=== PATIENT | female | born 1985 | race American Indian/Alaskan Native ===

== ENCOUNTER 2018-06-19 01:24 | Emergency (ER) | payer SELFPAY ==
[2018-06-19 02:23] VITALS: BP 129/90
[2018-06-19] MEDS ORDERED: PROVENTIL IH ONE (02:25)
--- NOTE | 2018-06-19 03:12 | XRay Report ---
FINAL REPORT EXAM: XR CHEST ROUTINE 2V HISTORY: Shortness of breath TECHNIQUE: PA and lateral views of the chest were submitted. FINDINGS: The heart size and vascularity appear normal. The lungs are clear. Pleural fluid is not seen. The skeletal structures do not show any acute changes. IMPRESSION: No acute cardiopulmonary process.
[2018-06-19 03:17] LABS: Basophils % (Auto) 0.2 % (0.0-1.8); Eosinophils # (Auto) 0.4 K/mm3 (0.0-0.4); Eosinophils % (Auto) 3.8 % (0.0-4.3); Hematocrit 37.7 % (30.3-42.9); Hemoglobin 12.7 gm/dl (10.1-14.3); Lymphocytes # (Auto) 1.6 K/mm3 (1.2-5.4); Lymphocytes % (Auto) 15.3 % (13.4-35.0); Mean Corpuscular HGB Conc 34 % (30-34); Mean Corpuscular Hemoglobin 28 pg (28-32); Mean Corpuscular Volume 84 fl (79-97); Monocytes # (Auto) 0.6 K/mm3 (0.0-0.8); Platelet Count 223 K/mm3 (140-440); Red Blood Count 4.48 M/mm3 (3.65-5.03); Red Cell Distribution Width 14.3 % (13.2-15.2)
[2018-06-19 03:36] LABS: BUN/Creatinine Ratio 16; Blood Urea Nitrogen 11 mg/dL (7-17); Calcium 9.1 mg/dL (8.4-10.2); Hemolysis Index 6
== END 2018-06-19 02:30 | disposition left against medical advice (07) ==
LOC: ED 01:24
DX: R06.00 Dyspnea, unspecified (principal); R07.9 Chest pain, unspecified; Z53.21 Procedure and treatment not carried out due to patient leaving prior to being seen by health care provider
CPT/HCPCS: 36415; 71046; 80048; 84484; 84703; 85025; 93005; 93010; 94640

== ENCOUNTER 2019-11-20 08:29 | Emergency (ER) | payer SELFPAY ==
[2019-11-20] MEDS ORDERED: ALBUTEROL 2.5 MG/3 ML NEBU IH ONE (08:45)
[2019-11-20] MEDS ORDERED: methylPREDNISolone Sod Succinate 125 MG/2 ML INJ IV ONE (08:45)
[2019-11-20] MEDS ORDERED: IPRATROPIUM 0.02% NEBU 2.5 ML IH ONE (08:45)
[2019-11-20] MEDS ORDERED: MAGNESIUM SULFATE 2 GM/50 ML BAG IV ONE (08:47)
--- NOTE | 2019-11-20 08:54 | Emergency Department Report ---
ED Asthma HPI - General Chief Complaint: Adult Asthma Stated Complaint: SOB Time Seen by Provider: 11/20/19 08:45 Source: patient Mode of arrival: Ambulatory Limitations: No Limitations - History of Present Illness Initial Comments: Ms. Reeder is a 34-year-old female past medical history of asthma, bipolar disorder presents with shortness of breath and wheezing for the past 2 days. She has had subjective fever, body aches, cough sore throat nasal congestion. She feels tight in her chest. She has had prior hospitalization for asthma. She denies history of intubation or mechanical ventilation. She lives in [place]. Complaint: shortness of breath, wheezing -: Gradual, days(s) (2) Asthma History: childhood onset, history of prior ED visit Severity: severe Context: recent URI Associated Symptoms: productive cough, fever, chest pain Treatments Prior to Arrival: inhaled bronchodilator - Related Data Current Asthma Therapy: inhaled bronchodilator Home Medications Medication Instructions Recorded Confirmed Last Taken Hydroxychloroquine [Plaquenil] 400 mg PO QDAY 06/20/18 06/20/18 Unknown Lubiprostone (Nf) [Amitiza (Nf)] 24 mcg PO BID 06/20/18 06/20/18 Unknown Omeprazole Magnesium [Prilosec Otc] 20 mg PO DAILY 06/20/18 06/20/18 Unknown Pilocarpine (Nf) 5 mg PO Q6H 06/20/18 06/20/18 Unknown metHOTREXate(DOSE WEEKLY ONLY) 2.5 mg PO QWEEK 06/20/18 06/20/18 06/16/18 08:00 [metHOTREXate (DOSE WEEKLY ONLY)] Previous Rx's Medication Instructions Recorded Last Taken Type Albuterol INH(or & Nicu Only) 1 puff IH Q6H PRN #1 inha 06/25/18 Unknown Rx [ProAir HFA Inhaler] Arformoterol Nebu [Brovana Nebu] 15 mcg IH Q12HR #30 neb 06/25/18 Unknown Rx Benzonatate [Tessalon Perles] 100 mg PO Q8HR #20 capsule 06/25/18 Unknown Rx Budesonide [Pulmicort] 0.5 mg IH BID #60 ampul.neb 06/25/18 Unknown Rx Divalproex ER [Depakote ER] 500 mg PO BID #60 tablet 09/21/18 Unknown Rx Hydrocodone Bit/Homatrop Me-Br 473 ml PO Q6H 5 Days syrup 06/25/18 Unknown Rx [Hydrocodone-Homatropine Syrup] Ipratropium [Atrovent NEB] 0.5 mg IH Q6HRT #90 nebu 06/25/18 Unknown Rx Levalbuterol [Xopenex] 0.63 mg IH Q6HRT #90 nebu 06/25/18 Unknown Rx Mometasone/Formoterol [Dulera 200 2 puff IH BID #1 hfa.aer.ad 06/25/18 Unknown Rx Mcg-5 Mcg Inhaler] Prednisone [predniSONE 10 mg 10 mg PO .TAPER #1 tab.ds.pk 06/25/18 Unknown Rx (6-Day Pack, 21 Tabs)] QUEtiapine [SEROquel] 200 mg PO QHS #30 tablet 06/25/18 Unknown Rx busPIRone [Buspar] 7.5 mg PO BID #60 tablet 06/25/18 Unknown Rx diphenhydrAMINE [Benadryl CAP] 25 mg PO HS #20 capsule 06/25/18 Unknown Rx levoFLOXacin [Levaquin TAB] 750 mg PO DAILY #2 tablet 06/25/18 Unknown Rx traMADoL [Ultram 50 MG tab] 50 mg PO Q6H PRN #14 tablet 06/25/18 Unknown Rx Albuterol INH(or & Nicu Only) 2 puff IH QID PRN #8.5 gram 11/20/19 Unknown Rx [ProAir HFA Inhaler] Benzonatate [Tessalon Perles] 100 mg PO Q8HR PRN #20 capsule 11/20/19 Unknown Rx Prednisone [predniSONE 10 mg 10 mg PO .TAPER #1 tab.ds.pk 11/20/19 Unknown Rx (6-Day Pack, 21 Tabs)] Allergies Allergy/AdvReac Type Severity Reaction Status Date / Time acetaminophen [From Percocet] Allergy Hives Verified 06/19/18 02:23 ondansetron [From Zofran] Allergy Hives Verified 06/19/18 21:19 oxycodone [From Percocet] Allergy Hives Verified 06/19/18 02:23 ED Review of Systems ROS: Stated complaint: SOB Other details as noted in HPI Comment: All other systems reviewed and negative Constitutional: fever, malaise ENT: congestion Respiratory: cough, shortness of breath, wheezing Cardiovascular: chest pain Gastrointestinal: denies: abdominal pain Musculoskeletal: myalgia Neurological: denies: headache ED Past Medical Hx - Past Medical History Previous Medical History?: Yes Hx Congestive Heart Failure: No Hx Diabetes: No Hx GERD: Yes Hx Asthma: Yes Hx COPD: No Hx HIV: No Additional medical history: RA, sjogren's - Surgical History Past Surgical History?: Yes Additional Surgical History: x 2, Partial hysterectomy - Social History Smoking Status: Never Smoker Substance Use Type: Alcohol, Prescribed - Medications Home Medications: Home Medications Medication Instructions Recorded Confirmed Last Taken Type Hydroxychloroquine [Plaquenil] 400 mg PO QDAY 06/20/18 06/20/18 Unknown History Lubiprostone (Nf) [Amitiza (Nf)] 24 mcg PO BID 06/20/18 06/20/18 Unknown History Omeprazole Magnesium [Prilosec Otc] 20 mg PO DAILY 06/20/18 06/20/18 Unknown History Pilocarpine (Nf) 5 mg PO Q6H 06/20/18 06/20/18 Unknown History metHOTREXate(DOSE WEEKLY ONLY) 2.5 mg PO QWEEK 06/20/18 06/20/18 06/16/18 08:00 History [metHOTREXate (DOSE WEEKLY ONLY)] Albuterol INH(or & Nicu Only) 1 puff IH Q6H PRN #1 inha 06/25/18 Unknown Rx [ProAir HFA Inhaler] Arformoterol Nebu [Brovana Nebu] 15 mcg IH Q12HR #30 neb 06/25/18 Unknown Rx Benzonatate [Tessalon Perles] 100 mg PO Q8HR #20 capsule 06/25/18 Unknown Rx Budesonide [Pulmicort] 0.5 mg IH BID #60 ampul.neb 06/25/18 Unknown Rx Divalproex ER [Depakote ER] 500 mg PO BID #60 tablet 06/25/18 Unknown Rx Hydrocodone Bit/Homatrop Me-Br 473 ml PO Q6H 5 Days syrup 06/25/18 Unknown Rx [Hydrocodone-Homatropine Syrup] Ipratropium [Atrovent NEB] 0.5 mg IH Q6HRT #90 nebu 06/25/18 Unknown Rx Levalbuterol [Xopenex] 0.63 mg IH Q6HRT #90 nebu 06/25/18 Unknown Rx Mometasone/Formoterol [Dulera 200 2 puff IH BID #1 hfa.aer.ad 06/25/18 Unknown Rx Mcg-5 Mcg Inhaler] Prednisone [predniSONE 10 mg 10 mg PO .TAPER #1 tab.ds.pk 06/25/18 Unknown Rx (6-Day Pack, 21 Tabs)] QUEtiapine [SEROquel] 200 mg PO QHS #30 tablet 06/25/18 Unknown Rx busPIRone [Buspar] 7.5 mg PO BID #60 tablet 06/25/18 Unknown Rx diphenhydrAMINE [Benadryl CAP] 25 mg PO HS #20 capsule 06/25/18 Unknown Rx levoFLOXacin [Levaquin TAB] 750 mg PO DAILY #2 tablet 06/25/18 Unknown Rx traMADoL [Ultram 50 MG tab] 50 mg PO Q6H PRN #14 tablet 06/25/18 Unknown Rx Albuterol INH(or & Nicu Only) 2 puff IH QID PRN #8.5 gram 11/20/19 Unknown Rx [ProAir HFA Inhaler] Benzonatate [Tessalon Perles] 100 mg PO Q8HR PRN #20 capsule 11/20/19 Unknown Rx Prednisone [predniSONE 10 mg 10 mg PO .TAPER #1 tab.ds.pk 11/20/19 Unknown Rx (6-Day Pack, 21 Tabs)] ED Physical Exam - General Limitations: No Limitations General appearance: alert, in distress (Severe work of breathing only able to speak 2 to 3 word sentence) - Head Head exam: Present: atraumatic, normocephalic - Eye Eye exam: Present: normal appearance - ENT ENT exam: Present: normal orophraynx, mucous membranes moist - Neck Neck exam: Present: normal inspection, full ROM. Absent: tenderness, meningismus - Respiratory Respiratory exam: Present: respiratory distress, wheezes, accessory muscle use, prolonged expiratory. Absent: rales, rhonchi - Cardiovascular Cardiovascular Exam: Present: normal rhythm, tachycardia, normal heart sounds. Absent: systolic murmur, diastolic murmur, rubs, gallop - GI/Abdominal GI/Abdominal exam: Present: soft, normal bowel sounds. Absent: distended, tenderness, guarding, rebound - Extremities Exam Extremities exam: Present: normal inspection - Neurological Exam Neurological exam: Present: alert, oriented X3 - Psychiatric Psychiatric exam: Present: normal affect, agitated - Skin Skin exam: Present: warm, dry, intact, normal color. Absent: rash ED Course Vital Signs 11/20/19 11/20/19 11/20/19 08:34 08:58 09:34 Temperature 98.1 F Pulse Rate 102 H Pulse Rate [ 96 H Bilateral] Respiratory 26 H 22 Rate Respiratory 24 Rate [Bilateral ] Blood Pressure 134/89 Blood Pressure [Right] O2 Sat by Pulse 99 97 Oximetry 11/20/19 11/20/19 10:10 12:21 Temperature Pulse Rate 100 H 94 H Pulse Rate [ Bilateral] Respiratory 16 Rate Respiratory Rate [Bilateral ] Blood Pressure Blood Pressure 132/75 125/73 [Right] O2 Sat by Pulse 98 97 Oximetry ED Medical Decision Making - Lab Data Result diagrams: 11/20/19 08:57 11/20/19 08:57 - Radiology Data Radiology results: report reviewed Chest radiograph: No acute findings according to radiology impression - Medical Decision Making Acute asthma exacerbation triggered by upper respiratory infection. After treatment with steroids magnesium nebulizer therapy, symptoms greatly improved. She has clear breath sounds on exam. She is ready for discharge subjectively. I prescribed prednisone albuterol DAYNA and Nelia Canseco. Referred to outpatient medicine physician. Critical Care Time: Yes Critical care time in (mins) excluding proc time.: 40 Critical care attestation.: If time is entered above; I have spent that time in minutes in the direct care of this critically ill patient, excluding procedure time. 40 minutes of critical care time excluding procedures were used in the care of the patient. I reviewed electronic record. I discussed treatment plan with the nursing team members at the bedside. I came immediately to the bedside. Patient required multiple interventions and reassessments. ED Disposition Clinical Impression: Acute asthma exacerbation Disposition: DC-01 TO HOME OR SELFCARE Is pt being admited?: No Does the pt Need Aspirin: No Condition: Stable Instructions: Asthma (ED) Prescriptions: Prednisone [predniSONE 10 mg (6-Day Pack, 21 Tabs)] 10 mg PO .TAPER #1 tab.ds.pk Albuterol INH(or & Nicu Only) [ProAir HFA Inhaler] 2 puff IH QID PRN #8.5 gram PRN Reason: Shortness Of Breath Benzonatate [Tessalon Perles] 100 mg PO Q8HR PRN #20 capsule PRN Reason: Cough Referrals: VICK KEE MD [Staff Physician] - 3-5 Days Forms: Work/School Release Form(ED)
[2019-11-20 09:23] LABS: Hematocrit 40.1 % (30.3-42.9); Hemoglobin 13.5 gm/dl (10.1-14.3); Mean Corpuscular HGB Conc 34 % (30-34); Mean Corpuscular Volume 82 fl (79-97); Platelet Count 251 K/mm3 (140-440); Red Blood Count 4.89 M/mm3 (3.65-5.03); Red Cell Distribution Width 15.1 % (13.2-15.2)
[2019-11-20 09:26] LABS: Basophils % (Auto) 0.6 % (0.0-1.8); Eosinophils # (Auto) 0.3 K/mm3 (0.0-0.4); Eosinophils % (Auto) 4.6 % (0.0-4.3); Lymphocytes # (Auto) 1.2 K/mm3 (1.2-5.4); Lymphocytes % (Auto) 18.8 % (13.4-35.0); Monocytes # (Auto) 0.5 K/mm3 (0.0-0.8); Monocytes % (Auto) 8.6 % (0.0-7.3)
[2019-11-20] MEDS ORDERED: ONDANSETRON 4 MG/2 ML INJ IV ONE (09:28)
[2019-11-20] MEDS ORDERED: ONDANSETRON 4 MG/2 ML INJ ONE (09:31)
[2019-11-20 09:39] LABS: BUN/Creatinine Ratio 14; Blood Urea Nitrogen 10 mg/dL (7-17); Calcium 9.5 mg/dL (8.4-10.2); Hemolysis Index 6
--- NOTE | 2019-11-20 11:08 | XRay Report ---
CHEST 1 VIEW INDICATION / CLINICAL INFORMATION: dyspnea. COMPARISON: 06/18/2018 FINDINGS: SUPPORT DEVICES: None. HEART / MEDIASTINUM: No significant abnormality. LUNGS / PLEURA: No significant pulmonary or pleural abnormality. No pneumothorax. No hyperinflation n oted. ADDITIONAL FINDINGS: No significant additional findings. IMPRESSION: 1. No acute findings. No interval change. Signer Name: Magalie Whitten MD Signed: 11/20/2019 11:04 AM Workstation Name: [id number]
[2019-11-20 12:22] VITALS: BP 125/73
== END 2019-11-20 12:47 | disposition home or self-care (01) ==
LOC: ED 08:29
DX: J45.901 Unspecified asthma with (acute) exacerbation (principal); K21.9 Gastro-esophageal reflux disease without esophagitis
CPT/HCPCS: 36415; 71045; 80048; 85025; 94640; 96365; 96375; 99284; J2405; J2930; J3475; 94644